=== PATIENT | female | born 1970 | race Caucasian/White ===

== ENCOUNTER 2016-08-28 12:15 | Emergency (ER) | payer OTHER ==
[~2016-08-28] VITALS: Ht 170.2 cm; Wt 58.2 kg
[2016-08-28] MEDS ORDERED: SODIUM CHLORIDE 0.9% 1,000ML IVBOLUS ONE ×2 (12:30→15:00)
[2016-08-28] MEDS ORDERED: LORazepam 2 MG/ML, 1ML ONE (12:56)
[2016-08-28] MEDS ORDERED: LORazepam 2 MG/ML, 1ML IVPush ONE (13:00)
[2016-08-28] MEDS ORDERED: CITA20TA9 PO (13:15)
[2016-08-28 13:28] LABS: ASPARTATE AMINO TRANSFERASE 19 U/L (15-37); BLOOD UREA NITROGEN 13 mg/dL (7-18)
[2016-08-28] MEDS ORDERED: ONDANSETRON 2MG/ML, 2ML IVPush ONE (14:00)
[2016-08-28] MEDS ORDERED: ONDANSETRON 2MG/ML, 2ML ONE (14:43)
[2016-08-28 15:41] VITALS: BP 107/61
== END 2016-08-28 15:43 | disposition home or self-care (01) ==
LOC: ED 13:17
DX: F41.1 Generalized anxiety disorder (principal)
CPT/HCPCS: 36415; 71010; 80053; 81003; 85025; 93005; 96361; 96374; 96375; 99285; J2060; J2405; J7030

== ENCOUNTER → 2016-09-02 | Outpatient (CLI) | payer OTHER ==
[~2016-09-02] MED LIST: CITA20TA9 PO
== END | disposition home or self-care (01) ==
LOC: CFH 08:51
PROVIDERS: ATTEND Genetic Counselor, MS
DX: Z12.31 Encounter for screening mammogram for malignant neoplasm of breast (principal); Z98.82 Breast implant status; Z98.890 Other specified postprocedural states
CPT/HCPCS: G0202